=== PATIENT | female | born 1940 | race Caucasian/White ===

== ENCOUNTER 2018-08-06 21:51 | Observation (INO) | payer OTHER ==
[~2018-08-06] VITALS: Ht 152.4 cm; Wt 59.0 kg
[2018-08-06 22:45] LABS: Basophils # (auto) 0 uL; Basophils % (auto) 0.2 % (0.0-2.0); Eosinophils # (auto) 0.1 uL; Eosinophils % (auto) 0.6 % (0.0-7.0); Hematocrit 40.1 % (36.0-46.0); Hemoglobin 13.5 g/dL (12.2-16.2); Lymphocytes % (auto) 18.3 % (10.0-50.0); Mean Corpuscular Hemoglobin 31.7 pg (28.0-32.0); Mean Corpuscular Hgb Conc. 33.6 g/dL (32.0-36.0); Mean Corpuscular Volume 94.4 fL (80.0-100.0); Monocytes # (auto) 0.9 uL; Monocytes % (auto) 8.7 % (0.0-12.0); Neutrophils # (auto) 7.8 uL; Neutrophils % (auto) 72.2 % (37.0-80.0); Nucleated Red Blood Cells % 0.1 %; Platelet Count (auto) 258 10^3/uL (140-450); Red Blood Cells 4.25 10^6/uL (4.0-5.20); Red Cell Distribution Width 14.3 % (11.8-14.3); White Blood Cell 10.8 10^3/uL (4.4-10.8)
[2018-08-06 22:52] LABS: INR 0.97 (0.9-1.15); Partial Thromboplastin Time 27.4 sec (23.78-33.04); Prothrombin Time 10.4 sec (9.27-12.13)
[2018-08-06 22:54] LABS: BUN/Creatinine Ratio 22.5; Calcium 8.5 mg/dL (8.5-10.1)
[2018-08-06 22:57] LABS: Bilirubin, Total 0.4 mg/dL (0.2-1.0); Total Protein 7.2 g/dL (6.4-8.2)
[2018-08-07] MEDS ORDERED: LIDOCAINE 1%HCL (LOCAL ANESTH) 10 ML MDV ONE (00:13)
[2018-08-07] MEDS ORDERED: LORazepam 2MG/ML-1ML VIAL IV ONE (00:30)
[2018-08-07] MEDS ORDERED: LIDOCAINE 1% HCL (LOCAL ANESTH.) INJ 20ML MDV ID ONE (00:30)
[2018-08-07 00:45] VITALS: BP 150/92
[2018-08-07] MEDS ORDERED: cefTRIAXone 1GM/50ML D5W 50 ML IV ONE (00:45)
[2018-08-07] MEDS ORDERED: HYDROcodone-ACET 10/325MG TAB PO ONE (00:45)
[2018-08-07] MEDS ORDERED: BACITRACIN TOP OINT 1 UD PKG TOP ONE (00:53)
[2018-08-07] MEDS ORDERED: BACITRACIN INJ 50000 UNIT VIAL TOP ONE (01:00)
== END 2018-08-07 02:15 | disposition left against medical advice (07) | DRG 554 ==
LOC: ER 21:59 → OVERFLOW 22:42 → ER 08-07 02:15
PROVIDERS: ADMIT Family Medicine; ATTEND Family Medicine
DX: M25.062 Hemarthrosis, left knee (principal); E11.9 Type 2 diabetes mellitus without complications; I25.2 Old myocardial infarction; I11.0 Hypertensive heart disease with heart failure; I50.9 Heart failure, unspecified; I48.91 Unspecified atrial fibrillation; M11.20 Other chondrocalcinosis, unspecified site; M71.20 Synovial cyst of popliteal space [Baker], unspecified knee; Z88.8 Allergy status to other drugs, medicaments and biological substances
CPT/HCPCS: 36415; 73700; 80053; 85025; 85379; 85610; 85730; 96365; 96375; 99284; G0378; J0696; J2001; J2060